=== PATIENT | female | born 1995 | race Hispanic/Latino ===

== ENCOUNTER 2021-09-12 12:13 | Outpatient (CLI) | payer MEDICAID | END 2021-09-12 12:14 | disposition home or self-care (01) | LOC: LAB 12:13 | PROVIDERS: ATTEND Obstetrics & Gynecology | DX: O26.893 Other specified pregnancy related conditions, third trimester (principal); Z67.41 Type O blood, Rh negative; Z3A.30 30 weeks gestation of pregnancy | CPT/HCPCS: 86850; 86900; 86901; 96372; J2790 ==

== ENCOUNTER 2021-11-25 08:09 | Inpatient (IN) | payer MEDICAID ==
[2021-11-25] MEDS ORDERED: LACTATED RINGERS 1,000 ML ONE (08:45)
[2021-11-25 11:00] LABS: Hematocrit 37.9 % (30.3-42.9); Hemoglobin 12.5 gm/dl (10.1-14.3); Mean Corpuscular HGB Conc 33 % (30-34); Mean Corpuscular Volume 97 fl (79-97); Platelet Count 271 K/mm3 (140-440); Red Blood Count 3.89 M/mm3 (3.65-5.03)
[2021-11-25] MEDS ORDERED: METHYLERGONOVINE MALEATE 0.2 MG/ML VIAL IM PRN (11:00)
[2021-11-25] MEDS ORDERED: OXYTOCIN 10 UNIT/1 ML INJ IM PRN (11:00)
[2021-11-25] MEDS ORDERED: AMPICILLIN/NS 2 GM/100 ML 2 GM/100 ML BAG IV ONE (11:00)
[2021-11-25] MEDS ORDERED: OXYTOCIN DRIP 30 UNITS/500 ML BAG IV SCH ×2 (11:00)
[2021-11-25] MEDS ORDERED: CARBOPROST TROMETHAMINE 250 MCG/1 ML INJ IM PRN (11:00)
[2021-11-25] MEDS ORDERED: miSOPROStol 200 MCG TAB PR PRN (11:00)
[2021-11-25] MEDS ORDERED: ACETAMINOPHEN 325 MG TAB PO PRN (11:00)
[2021-11-25] MEDS ORDERED: ePHEDrine SULFATE 50 MG/1 ML INJ IV PRN (11:00)
[2021-11-25] MEDS ORDERED: fentaNYL 100 MCG/2 ML INJ IV PRN (11:00)
[2021-11-25] MEDS ORDERED: TERBUTALINE 1 MG/1 ML INJ SUB-Q PRN (11:00)
[2021-11-25] MEDS ORDERED: LIDOCAINE (2%) 20 MG/1 ML VIAL 20 ML MDV INFILTRATI SCH (11:00)
[2021-11-25] MEDS ORDERED: LOPERAMIDE 2 MG CAP PO PRN (11:00)
[2021-11-25] MEDS ORDERED: MINERAL OIL 30 ML ORAL LIQD PO PRN (11:00)
[2021-11-25] MEDS: miSOPROStol 25 MCG TAB VG SCH ×3 (11:30→19:42)
[2021-11-25] MEDS ORDERED: AMPICILLIN/NS 1 GM/50 ML 1 GM/50 ML BAG IV ONE (15:00)
[2021-11-25] MEDS: AMPICILLIN/NS 1 GM/50 ML 1 GM/50 ML BAG IV SCH (20:28)
[2021-11-26] MEDS: BUTORPHANOL 2 MG/1 ML INJ IV PRN ×3 (00:22→10:09)
[2021-11-26] MEDS: miSOPROStol 25 MCG TAB VG SCH ×4 (00:23→17:22)
[2021-11-26] MEDS: AMPICILLIN/NS 1 GM/50 ML 1 GM/50 ML BAG IV SCH ×4 (01:00→22:39)
[2021-11-26] MEDS: ONDANSETRON 4 MG/2 ML INJ IV PRN ×2 (01:49→09:52)
[2021-11-26] MEDS: LACTATED RINGERS 1,000 ML IV SCH (09:52)
[2021-11-26] MEDS ORDERED: ePHEDrine SULFATE 50 MG/1 ML INJ IV PRN (15:15)
[2021-11-26] MEDS ORDERED: NALOXONE 2 MG/2 ML INJ IV PRN (15:15)
--- NOTE | 2021-11-26 15:51 | Anesthesia Consultation ---
Anesthesia Consult and Med Hx Date of service: 11/26/21 - Airway Anesthetic Teeth Evaluation: Poor ROM Head & Neck: Adequate Mental/Hyoid Distance: Adequate Mallampati Class: Class II Intubation Access Assessment: Probably Good - Pulmonary Exam CTA: Yes - Cardiac Exam Cardiac Exam: RRR - Pre-Operative Health Status ASA Pre-Surgery Classification: ASA2 Proposed Anesthetic Plan: Epidural - Pulmonary Hx Smoking: No Hx Asthma: No Hx Respiratory Symptoms: No COPD: No Hx Pneumonia: No - Cardiovascular System Hx Hypertension: No - Central Nervous System Hx Seizures: Yes (once while having blood drawn in 2010) Hx Psychiatric Problems: No - Endocrine Hx Renal Disease: No Hx End Stage Renal Disease: No Hx Hypothyroidism: No Hx Hyperthyroidism: No - Hematic Hx Anemia: No Hx Sickle Cell Disease: No - Other Systems Hx Alcohol Use: Yes Hx Obesity: Yes
--- NOTE | 2021-11-26 15:54 | Progress Note ---
Labor Epidural - Labor Epidural Start Time: 15:16 Stop Time: 15:29 Performed by:: BRENDA SHAFFER Procedure: Patient is requesting epidural for labor pain. H&P and labs reviewed. Procedure explained, questions answered, consent obtained. Patient placed in sitting position with monitors applied. Timeout performed immediately before start of procedure. Prep/drape in usual sterile fashion. Skin localized 3 mL 1% lidocaine at L[3]-L[4] interspace. 17-gauge Touhy epidural needle advanced to KALA with saline at [8] cm. No blood/CSF noted via epidural needle. Epidural catheter advanced to [12] cm. Negative aspiration for blood and CSF via catheter, negative response to test dose 3 ml 1.5% lidocaine w/ Epi. Sterile dressing applied followed by tape reinforcement. Patient tolerated procedure well. No immediate complications noted.
[2021-11-26] MEDS: fentaNYL-BUPIV 2 MCG/ML-0.125% 200 MCG/100 ML BAG EPIDURAL SCH (17:22)
--- NOTE | 2021-11-26 19:00 | History and Physical Report ---
History of Present Illness Date of examination: 11/25/21 Date of admission: 11/25/21 08:09 Chief complaint: Here for my induction History of present illness: Patient is a 26-year-old 1 para 0 who presents for induction of labor secondary to postdates. Patient had a EDC of 11/16/2021, which makes her 41 weeks and 1 day. She had uncomplicated course. She is GBS positive. She started care in the first trimester at [facility]. Past History Past Medical History: no pertinent history Past Surgical History: no surgical history Family/Genetic History: none Social history: single - Obstetrical History Expected Date of Delivery: 11/16/21 Actual Gestation: 41 Week(s) 3 Day(s) : 1 Para: 0 Medications and Allergies Allergies Allergy/AdvReac Type Severity Reaction Status Date / Time No Known Allergies Allergy Verified 09/12/21 16:30 Home Medications Medication Instructions Recorded Confirmed Last Taken Type No Known Home Medications [No 11/26/21 11/26/21 Unknown History Reported Home Medications] Active Meds: Active Medications Acetaminophen (Acetaminophen 325 Mg Tab) 650 mg PO Q4H PRN PRN Reason: Pain, Mild (1-3) Butorphanol Tartrate (Butorphanol 2 Mg/1 Ml Inj) 1 mg IV Q2H PRN PRN Reason: Pain, Moderate(4-6) LABOR PAIN Last Admin: 11/26/21 10:09 Dose: 1 mg Carboprost Tromethamine (Carboprost Tromethamine 250 Mcg/1 Ml Inj) 250 mcg IM ONCE PRN PRN Reason: Uterine Bleeding Ephedrine Sulfate (Ephedrine Sulfate 50 Mg/1 Ml Inj) 10 mg IV Q2M PRN PRN Reason: Hypotension Last Admin: 11/26/21 15:55 Dose: 10 mg Fentanyl (Fentanyl 100 Mcg/2 Ml Inj) 100 mcg IV Q2H PRN PRN Reason: Pain,Severe (7-10) LABOR PAIN Last Admin: 11/25/21 19:55 Dose: 100 mcg Oxytocin/Sodium Chloride (Pitocin/Ns 30 Unit/500ml) 30 units in 500 mls @ 2 mls/hr IV TITR [facility]; Protocol Lactated Ringer's (Lactated Ringers) 1,000 mls @ 125 mls/hr IV DIRECT [facility]J Last Admin: 11/26/21 09:52 Dose: 125 mls/hr Oxytocin/Sodium Chloride (Pitocin/Ns 30 Unit/500ml) 30 units in 500 mls @ 40 mls/hr IV TITR [facility]; Protocol Ampicillin Sodium (Ampicillin/Ns 1 Gm/50 Ml) 1 gm in 50 mls @ 100 mls/hr IV Q4H [facility]; Protocol Last Admin: 11/26/21 04:00 Dose: 100 mls/hr Fentanyl/Bupivacaine/Sodium Chlor (Fentanyl-Bupiv 2 Mcg/Ml-0.125%) 200 mcg in 100 mls @ 12 mls/hr EPIDURAL TITR [facility]; Protocol Last Admin: 11/26/21 17:22 Dose: 12 mls/hr Loperamide HCl (Loperamide 2 Mg Cap) 2 mg PO ONCE PRN PRN Reason: give with Hemabate Methylergonovine Maleate (Methylergonovine Maleate 0.2 Mg/Ml Vial) 0.2 mg IM ONCE PRN PRN Reason: Uterine Bleeding Mineral Oil (Mineral Oil 30 Ml Oral Liqd) 30 ml PO QHS PRN PRN Reason: Constipation Misoprostol (Misoprostol 200 Mcg Tab) 800 mcg NH ONCE PRN PRN Reason: Uterine Bleeding Misoprostol (Misoprostol 25 Mcg Tab) 25 mcg VG Q4H [facility] Last Admin: 11/26/21 17:22 Dose: 25 mcg Naloxone HCl (Naloxone 2 Mg/2 Ml Inj) 0.2 mg IV Q5M PRN PRN Reason: Respiratory sedation Ondansetron HCl (Ondansetron 4 Mg/2 Ml Inj) 4 mg IV Q8H PRN PRN Reason: Nausea And Vomiting Last Admin: 11/26/21 09:52 Dose: 4 mg Oxytocin (Oxytocin 10 Unit/1 Ml Inj) 10 unit IM ONCE PRN PRN Reason: Uterine Bleeding Terbutaline Sulfate (Terbutaline 1 Mg/1 Ml Inj) 0.25 mg SUB-Q ONCE PRN PRN Reason: Hyperstimulation/Hypertonicity Review of Systems All systems: negative Gastrointestinal: abdominal pain Genitourinary: contractions Musculoskeletal: low back pain - Vital Signs Vital signs: Vital Signs Pulse Pulse Ox 100 H 96 11/25/21 08:55 11/25/21 08:55 Temp Pulse Resp BP Pulse Ox 97.4 F L 58 L 16 104/63 99 11/26/21 18:39 11/26/21 18:52 11/26/21 12:23 11/26/21 18:41 11/26/21 18:52 - Physical Exam Breasts: Cardiovascular: Regular rate, Normal S1, Normal S2 Lungs: Positive: Clear to auscultation, Normal air movement Abdomen: Positive: normal appearance, soft, normal bowel sounds. Negative: distention, tenderness Genitourinary (Female): Positive: normal external genitalia, normal perenium Vulva: both: normal Vagina: Positive: normal moisture. Negative: discharge Cervix: Negative: lesion, discharge Uterus: Positive: normal size, normal contour Adnexa: both: normal Anus/Rectum: Positive: normal perianal skin, heme negative. Negative: rectal mass, hemorrhoids Extremities: Deep Tendon Reflex Grade: Normal +2 - Obstetrical FHR: auscultation normal Cervical Dilatation: 0.5 Cervical Effacement Percentage: 30 station: -2 Uterine Contraction Pattern: Irregular Uterine Contraction Intensity: Moderate Results Result Diagrams: 11/25/21 09:00 Abnormal lab results 11/26/21 Range/Units 13:11 Membranes Rupture Positive A (Negative) All other labs normal. Assessment and Plan IUP at 41-1/7 weeks here for induction of labor secondary to postdates. Admit for Cytotec induction. Patient may have pain medicine as needed. Will treat for beta strep positivity. Anticipate .
--- NOTE | 2021-11-26 19:01 | Event Note ---
Date: 11/26/21 Patient comfortable status post epidural placement. Cervical exam is / -1. We will begin Pitocin soon. Anticipate .
[2021-11-27] MEDS: fentaNYL-BUPIV 2 MCG/ML-0.125% 200 MCG/100 ML BAG EPIDURAL SCH (01:05)
[2021-11-27] MEDS: LACTATED RINGERS 1,000 ML IV SCH (02:28)
[2021-11-27] MEDS ORDERED: LIDOCAINE (2%) 20 MG/1 ML VIAL 20 ML MDV INFILTRATI ONE (02:44)
--- NOTE | 2021-11-27 04:34 | Procedure Note ---
OB Delivery Note - Delivery Date of Delivery: 11/27/21 Surgeon: FRANSICO CARBALLO - Vaginal Delivery presentation: vertex Delivery position: OA Intrapartum events: meconium, prolonged 2nd stage>2.5hr Delivery induction: misoprostol Delivery augmentation: pitocin Delivery monitor: external FHT, external uterine Route of delivery: vacuum extraction Indicators for instrumentation: maternal exhaustion Delivery placenta: spontaneous Delivery cord: 3 umbilical vessels Episiotomy: midline Delivery repair: vicryl Anesthesia: epidural Delivery comments: Viable male delivered with vaccuum assistance due to maternal exhaustion. Placenta delivered spontaneously and intact with 3vc. Infant was handed to waiting NICU team secondary to meconium. episiotomy repaired with 2.0 vicryl. Excellent hemostasis. Pt tolerated procedure well. - B at 1 minute: 7 at 5 minutes: 9 Infant Gender: Male (6 pounds 11 ounces)
[2021-11-27] MEDS ORDERED: ONDANSETRON 4 MG/2 ML INJ IV PRN (09:00)
[2021-11-27] MEDS ORDERED: diphenhydrAMINE 25 MG CAP PO PRN (09:00)
[2021-11-27] MEDS ORDERED: WITCH HAZEL/ GLYCERIN PAD TP PRN (09:00)
[2021-11-27] MEDS ORDERED: ACETAMINOPHEN 325 MG TAB PO PRN (09:00)
[2021-11-27] MEDS ORDERED: LANOLIN/ZINC/DIMETHICONE (LANSINOH) 7 GM TP PRN (09:00)
[2021-11-27] MEDS ORDERED: PROMETHAZINE 25 MG RECT SUPP PR PRN (09:00)
[2021-11-27] MEDS ORDERED: PROMETHAZINE 25 MG TAB PO PRN (09:00)
[2021-11-27] MEDS: DOCUSATE SODIUM 100 MG CAP PO SCH ×2 (09:27→21:28)
[2021-11-27] MEDS: IBUPROFEN 800 MG TAB PO SCH ×2 (09:27→16:55)
[2021-11-27] MEDS: PRENATAL VIT27-FE FUMARATE-FOLIC ACID VIT TAB PO SCH (09:27)
[2021-11-27] MEDS ORDERED: BENZOCAINE/MENTHOL 20/0.5% TOP SPRAY 56 GM TP PRN (10:00)
--- NOTE | 2021-11-27 10:20 | Post Anesthesia Evaluation ---
- Post Anesthesia Evaluation Patient Participated: Yes Airway Patent: Yes Stable Respiratory Function: Yes Nausea/Vomiting: No Temp > 96.8F: Yes Pain Manageable: Yes Adequeate Hydration: Yes Anesthesia Complications: No Block Receding Appropriately: Yes Patient on Ventilator: No
[2021-11-27] MEDS: HYDROcodone/ACETAMINOPHEN 5-325 MG TAB PO PRN ×2 (13:02→21:28)
[2021-11-27 20:49] LABS: Hematocrit 31.1 % (30.3-42.9); Hemoglobin 10.3 gm/dl (10.1-14.3)
[2021-11-27] MEDS ORDERED: MAGNESIUM HYDROXIDE (MOM) ORAL LIQD UDC PO PRN (22:00)
[2021-11-28] MEDS: IBUPROFEN 800 MG TAB PO SCH ×2 (09:17→18:00)
[2021-11-28] MEDS: PRENATAL VIT27-FE FUMARATE-FOLIC ACID VIT TAB PO SCH (10:11)
[2021-11-28] MEDS: DOCUSATE SODIUM 100 MG CAP PO SCH (10:11)
[2021-11-28] MEDS: HYDROcodone/ACETAMINOPHEN 5-325 MG TAB PO PRN (12:40)
--- NOTE | 2021-11-28 18:17 | Discharge Summary ---
Providers - Providers Date of Admission: 11/25/21 08:09 Date of discharge: 11/29/21 Attending physician: FRANSICO CARBALLO Primary care physician: FRANSICO CARBALLO Hospitalization Delivery: Episiotomy: none Laceration: none Other procedures: none Discharge diagnosis: IUP at term delivered baby: male Hospital course: unremarkable Condition at discharge: Good Disposition: 01 HOME / SELF CARE / HOMELESS Plan - Discharge Medications Prescriptions: Ibuprofen [Motrin] 800 mg PO Q8HR PRN #40 tablet PRN Reason: Pain, Mild (1-3) HYDROcodone/APAP 5-325 [[place] 5/325] 1 each PO Q6HR PRN #15 tablet PRN Reason: Pain - Provider Discharge Summary Activity: routine, no sex for 6 weeks, no heavy lifting 4 weeks, no strenuous exercise Diet: routine Instructions: routine Additional instructions: [] Smoking cessation referral if applicable(refer to patient education folder for contact #) [] Refer to [facility] Booklet Call your doctor immediately for: * Fever > 100.5 * Heavy vaginal bleeding ( >1 pad per hour) * Severe persistent headache * Shortness of breath * Reddened, hot, painful area to leg or breast * Drainage or odor from incision. * Keep incision clean and dry at all times and follow doctor's instructions regarding bathing/showering - Follow up plan Follow up: FRANSICO CARBALLO MD [Primary Care Provider] - 6 Weeks Forms: [facility] Discharge Summary
[2021-11-29 01:19] VITALS: BP 103/62
== END 2021-11-28 23:00 | disposition home or self-care (01) | DRG 775 ==
LOC: LD 08:09 → OB 11-27 08:23
PROVIDERS: ADMIT Obstetrics & Gynecology; ATTEND Obstetrics & Gynecology
PROC: 10D07Z6 Extraction of Products of Conception, Vacuum, Via Natural or Artificial Opening (ICD-10-PCS; principal; 2021-11-27)
PROC: 3E0R3BZ Introduction of Anesthetic Agent into Spinal Canal, Percutaneous Approach (ICD-10-PCS; 2021-11-27)
PROC: 00HU33Z Insertion of Infusion Device into Spinal Canal, Percutaneous Approach (ICD-10-PCS; 2021-11-27)
PROC: 3E0P7VZ Introduction of Hormone into Female Reproductive, Via Natural or Artificial Opening (ICD-10-PCS; 2021-11-27)
PROC: 0W8NXZZ Division of Female Perineum, External Approach (ICD-10-PCS; 2021-11-27)
PROC: 3E0234Z Introduction of Serum, Toxoid and Vaccine into Muscle, Percutaneous Approach (ICD-10-PCS; 2021-11-28)
DX: O48.0 Post-term pregnancy (principal); Z3A.41 41 weeks gestation of pregnancy; Z20.822 Contact with and (suspected) exposure to COVID-19; Z37.0 Single live birth; O77.0 Labor and delivery complicated by meconium in amniotic fluid; O63.1 Prolonged second stage (of labor); O99.824 Streptococcus B carrier state complicating childbirth
CPT/HCPCS: 36415; 84112; 85014; 85018; 85027; 85461; 86850; 86900; 86901; 99211; G0378; J3490; G0463; J0290; J0595; J2210; J2405; J2590; J2790; J3010; J7120; U0003